=== PATIENT | female | born 1950 | race Caucasian/White ===

== ENCOUNTER → 2016-10-30 | Outpatient (CLI) | payer BC ==
[~2016-10-30] MED LIST: ACTOS30 MG PO; ADVAIR 250-501 EACH INH; AUGMENTIN 875-1 EACH PO; BENICAR HCT 401 EACH PO; CELEBREX200 MG PO; EFFEXOR XR75 MG PO; JANUVIA 100 MG100 MG PO; LEVAQUIN500 MG PO; MUCINEX600 MG PO; OMEPRAZOLE20 MG PO; PERCOCET 7.5-31 EACH PO; PRAVASTATIN SOD20 MG PO; PROVENTIL HFA 61 INH INH; RELAFEN 750 MG750 MG PO; SYNTHROID25 MCG PO; TOUJEO SQ; TYLENOL 500 MG500 MG PO; VITAMIN B12-FO1 EACH PO; VITAMIN D250000 UNIT PO
== END ==
LOC: KOH-I 08:00
DX: S46.011A Strain of muscle(s) and tendon(s) of the rotator cuff of right shoulder, initial encounter (principal)

== ENCOUNTER → 2016-11-22 | Outpatient (CLI) | payer BC ==
[2016-11-22 11:02] LABS: RED BLOOD COUNT 4.27 M/UL (4.00-5.10); WHITE BLOOD COUNT 6.8 K/UL (4.5-11.0)
[2016-11-22 11:16] LABS: BUN/CREATININE RATIO 21 (0-10)
== END ==
LOC: OPSV2 10:00
PROVIDERS: Orthopaedic Surgery
DX: Z01.810 Encounter for preprocedural cardiovascular examination (principal); Z01.812 Encounter for preprocedural laboratory examination; Z01.818 Encounter for other preprocedural examination; M75.101 Unspecified rotator cuff tear or rupture of right shoulder, not specified as traumatic; I10 Essential (primary) hypertension; E11.9 Type 2 diabetes mellitus without complications; J44.9 Chronic obstructive pulmonary disease, unspecified
CPT/HCPCS: 36415; 71020; 80048; 85025; 93005

== ENCOUNTER → 2020-11-14 | Outpatient (CLI) | payer MEDICARE, BC ==
[~2020-11-14] VITALS: Ht 162.6 cm; Wt 92.1 kg
[~2020-11-14] MED LIST changes: +ASPIRIN 325MG325 MG PO; +BENICAR40 MG PO; +COREG6.25 MG PO; +LEVOTHYROXINE75 MCG PO; +NEURONTIN300 MG PO; +NEXIUM20 MG PO; +PERCOCET 5/325 T1 EA PO; +PIOGLITAZONE HC30 MG PO; +PRAVACHOL40 MG PO; +ROXICODONE TAB 55 MG PO; +TOUJEO MAX300 UNIT/1 SQ; +ULTRAM50 MG PO; +VALIUM 5 MG TAB5 MG PO; +VASCEPA1 GM PO; +VENLAFAXINE HCL75 MG PO; +VITAMIN D21250 MCG PO; +ZOFRAN4 MG PO
== END ==
LOC: OPSV 11:28
DX: S32.000A Wedge compression fracture of unspecified lumbar vertebra, initial encounter for closed fracture (principal); M81.0 Age-related osteoporosis without current pathological fracture
CPT/HCPCS: 96365; J3489

== ENCOUNTER → 2022-01-30 | Outpatient (CLI) | payer BC ==
[~2022-01-30] VITALS: Ht 162.6 cm; Wt 92.1 kg
== END ==
LOC: OPSV 12:33
DX: M81.0 Age-related osteoporosis without current pathological fracture (principal)
CPT/HCPCS: 96365; J3489